=== PATIENT | male | born 1965 | race Caucasian/White ===

== ENCOUNTER → 2020-09-18 09:36 | Outpatient (BNVA) | payer OTHER, SELFPAY | PROVIDERS: Visit Provider Orthopaedic Surgery ==

== ENCOUNTER 2020-10-02 12:45 | Outpatient (REF) | payer OTHER, SELFPAY | END 2020-10-02 12:46 | disposition home or self-care (01) | LOC: HO.LAB 12:45 | PROVIDERS: Visit Provider Internal Medicine | DX: Z20.822 Contact with and (suspected) exposure to COVID-19 (principal) | CPT/HCPCS: 36415; C9803; U0003; U0005 ==

== ENCOUNTER 2020-10-10 13:34 | Day surgery (SDC) | payer OTHER, SELFPAY ==
[2020-10-10 14:02] VITALS: BMI 25.1
[2020-10-10 14:05] VITALS: BP 145/85; PULSE 77; RESP 18; TEMP 37.1; O2SAT 96
[2020-10-10 15:45] VITALS: BP 120/73; PULSE 70; RESP 18; TEMP 36.9; O2SAT 94
--- NOTE | 2020-10-10 15:46 | P.OP_ITS ---
Operative Note Operative Note Date of Service: 10/10/20 Narrative: Operative Note Preop diagnosis: 1. Left middle finger Trigger finger Postop diagnosis: 1. Left middle finger Trigger finger Procedure: 1. Left middle finger A1 gavino release Surgeon: Alondra Marie MD Anesthesia: local block using 1% lidocaine with epinephrine Findings: No locking or catching after A1 gavino release EBL: Less than 5 mL Tourniquet time: None Specimens: None Complications: None Disposition: Brought to recovery room in stable condition Plan: Follow-up for 7-10 days for wound check and suture removal Indications: The patient is 55 years old, with a left middle finger trigger finger that has been unresponsive to nonoperative management. The risks and benefits of operative treatment including but not limited to risk of damage to blood vessels, nerves, tendons, infection, persistent pain, persistent symptoms, recurrence or possible need for additional surgery were discussed with the patient and the patient wishes to proceed with surgery. Procedure: Once consent was obtained a local block was performed in the preop area using a combination of 1% lidocaine with epinephrine. The patient was then brought back to the operating suite and placed on the operative table in supine position. A tourniquet was applied to the proximal aspect of the left upper extremity and the limb was prepped and draped in a standard surgical fashion. Once assured that we had a good block, a 1.5 cm oblique incision was made centered over the A1 gavino of the left middle finger . The incision was made through the skin to the subcutaneous tissues using a #15 blade. Careful dissection was made down to the level of the A1 gavino using tenotomy scissors, with care being taken to protect the nearby neurovascular structures. A longitudinal incision was made in the A1 gavino 1st using a #15 blade, then using tenotomy scissors under direct visualization. The A1 gavino was noted to be thickened. Following our A1 gavino release, we no longer saw any locking or catching of the digit with flexion and extension. Once satisfied with our A1 gavino release the wound was copiously irrigated with normal saline and hemostasis was obtained with a brief period of local pressure. The skin edges were reapproximated with some 5.0 nylon suture material and a sterile dressing was applied. The patient appears to have tolerated the procedure well and with no complic ations. All digits were well vascularized at the conclusion of the case.
--- NOTE | 2020-10-10 15:46 | MHC.SHP ---
Pre-Procedural Eval Section B Chief Complaint: trigger finger Allergies: Allergies Allergy/AdvReac Type Severity Reaction Status Date / Time penicillamine Allergy Unknown unknown Verified 09/18/20 10:14 penicillin G Allergy Unknown Unknown Verified 09/18/20 10:14 Plan I have reviewed the history and physical and performed a pertinent physical examination on my patient. No changes have occurred unless specified.
== END 2020-10-10 16:38 | disposition home or self-care (01) ==
PROVIDERS: Visit Provider Orthopaedic Surgery
PROC: (CPT 26055; principal; 2020-10-10 14:30)
DX: M65.332 Trigger finger, left middle finger (principal); Z88.0 Allergy status to penicillin; F17.200 Nicotine dependence, unspecified, uncomplicated
CPT/HCPCS: 26055

== ENCOUNTER → 2020-10-21 09:17 | Outpatient (BNVA) | payer OTHER, SELFPAY | PROVIDERS: Visit Provider Orthopaedic Surgery ==

== ENCOUNTER → 2020-11-11 08:48 | Outpatient (BNVA) | payer OTHER, SELFPAY | PROVIDERS: Visit Provider Orthopaedic Surgery ==

== ENCOUNTER → 2020-11-15 13:56 | Outpatient (BNVA) | payer OTHER, SELFPAY | PROVIDERS: PCP Nurse Practitioner Family; Visit Provider Nurse Practitioner Family ==

== ENCOUNTER 2020-11-20 06:12 | Outpatient (REF) | payer OTHER, SELFPAY ==
[2020-11-20 17:46] LABS: Alanine Aminotransferase 82 U/L (0-40); Albumin Level 4.4 g/dL (3.5-5.0); Alkaline Phosphatase 79 U/L (39-117); Anion Gap 13 (12-20); Aspartate Amino Transferase 45 U/L (5-37); Bilirubin Total 0.3 mg/dL (0.0-1.0); Blood Urea Nitrogen 15 mg/dL (9-16); Calcium 9.2 mg/dL (8.4-10.2); Carbon Dioxide 28 mmol/L (22-29); Chloride 105 mmol/L (96-108); Cholesterol 343 mg/dL; Estimated Glomerular Filt Rate > 60; Glucose Fasting 97 mg/dL (60-99); HDL Cholesterol 31 mg/dL; LDL Cholesterol Calculated 262 mg/dl; Potassium 4.1 mmol/L (3.3-5.1); Sodium 142 mmol/L (135-145); Total Protein 7.3 g/dL (6.5-8.0); Triglycerides 252 mg/dL
[2020-11-20 17:56] LABS: Prostate Specific Antigen Scr 0.98 ng/mL (<0.05-4.0); TSH reflex Free T4 2.44 uIU/mL (0.32-4.0)
== END 2020-11-20 06:13 | disposition home or self-care (01) ==
LOC: HO.HMGCLDS 06:12
PROVIDERS: PCP Nurse Practitioner Family; Visit Provider Nurse Practitioner Family
DX: Z00.00 Encounter for general adult medical examination without abnormal findings (principal); Z12.5 Encounter for screening for malignant neoplasm of prostate
CPT/HCPCS: 36415; 80053; 80061; 84153; 84443

== ENCOUNTER 2020-12-06 08:07 | Outpatient (REF) | payer OTHER, SELFPAY ==
--- NOTE | ~2020-12-06 | US_ITS ---
EXAMINATION: US ABDOMEN COMPLETE CLINICAL INFORMATION: Abnormal liver function tests. COMPARISON: None TECHNIQUE: Real-time imaging of the abdominal viscera. FINDINGS: PANCREAS: Normal. ABDOMINAL AORTA: The proximal, mid, and distal segments are normal in caliber. INFERIOR VENA CAVA: Visualized portions are normal. LIVER: The liver is increased in echogenicity. No focal liver lesions are seen. The liver is normal in size. The liver contour is normal. There is no intrahepatic biliary duct dilatation seen. GALLBLADDER: Normal. The gallbladder is physiologically distended without evidence of stones, sludge, polyps, wall thickening or pericholecystic fluid. COMMON BILE DUCT: Normal in caliber measuring 0.48 cm in diameter. RIGHT KIDNEY: A tiny nonobstructive calculus is seen in the mid left kidney measuring 0.3 cm. No hydronephrosis or focal parenchymal lesions. The kidney measures 11.8 cm in maximum dimension. LEFT KIDNEY: Normal. No hydronephrosis. No renal calculi or focal parenchymal lesions. The kidney measures 11.0 cm in maximum dimension. SPLEEN: Normal. The spleen measures 9.3 cm in maximum dimension. FREE FLUID: None. US/US abdomen complete IMPRESSION: 1. Echogenic liver compatible with hepatic steatosis. Differential diagnosis includes hepatic parenchymal disease. No biliary dilatation. 2. No evidence of cholelithiasis.
== END 2020-12-06 08:08 | disposition home or self-care (01) ==
LOC: HO.HMGCX 08:07
PROVIDERS: PCP Internal Medicine; Visit Provider Nurse Practitioner Family
DX: R74.8 Abnormal levels of other serum enzymes (principal)
CPT/HCPCS: 76700

== ENCOUNTER 2020-12-20 07:40 | Day surgery (SDC) | payer OTHER, SELFPAY ==
--- NOTE | 2020-12-19 08:53 | P.CONAN_ITS ---
Documented by User: Shaina Mcclure 12/19/20 08:54 HPI - Anesthesia Eval Consult details Narrative: 55yo M for Colonoscopy [facility] Active Problems Active Problems: All Active Problems (Updated 11/21/20 @ 07:28 by Chad Hernández [facility]) Elevated liver enzymes (Acute) Dyslipidemia (Acute) Stiffness of finger joint (Acute) Trigger finger, left middle finger (Acute) Screening PSA (prostate specific antigen) (Acute) Physical exam (Acute) Screening for colon cancer (Acute) Trigger finger of left hand (Acute) Pain of left middle finger (Acute) Past Medical History Medical History (Updated 11/21/20 @ 07:28 [facility] Smoker Trigger finger Family History Family History (Updated 11/15/20 @ 13:59 by CHRISSIE Marinelli) Mother Colon cancer Social History Social History (Updated 11/15/20 @ 14:00 by CHRISSIE Marinelli) Household Members: Spouse Alcohol intake: current Alcohol intake frequency: former alcohol drinker Smoking Status: Current every day smoker Tobacco Type: Cigarette Cigarettes Per Day: 10 Years Smoked: 10 Smoked in Last 30 Days: Yes Use of substances other than those prescribed or required for medical reasons: Yes Are you DNR?: No Advance Directives: No Advance Directives Information Provided: Yes Current occupational status: employed 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, 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 Meds Allergies Allergy/AdvReac Type Severity Reaction Status Date / Time penicillamine Allergy Unknown unknown Verified 11/15/20 13:56 penicillin G Allergy Unknown Unknown Verified 11/15/20 13:56 Home Medications Medication Instructions Recorded Confirmed Last Taken Type prednisone 10 mg tablets in a dose See Rx Instructions PO PER PKG DIR 05/24/20 09/04/20 Unknown History pack Exam Exam Date and Time: December 19, 2020 0853 Assessment and Plan Assessment Anesthesia Assessment: Chart Reviewed Documented by User: Kellie Hoskins 12/20/20 08:30 [facility] Past Medical History Medical History (Updated 11/21/20 @ 07:28 by Chad Hernández [facility]) Smoker Trigger finger Family History Family History (Updated 11/15/20 @ 13:59 by CHRISSIE Marinelli) Mother Colon cancer Social History Social History (Updated 11/15/20 @ 14:00 by CHRISSIE Marinelli) Household Members: Spouse Alcohol intake: current Alcohol intake frequency: former alcohol drinker Smoking Status: Current every day smoker Tobacco Type: Cigarette Cigarettes Per Day: 10 Years Smoked: 10 Smoked in Last 30 Days: Yes Use of substances other than those prescribed or required for medical reasons: Yes Are you DNR?: No Advance Directives: No Advance Directives Information Provided: Yes Current occupational status: employed 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, 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 Meds Allergies Allergy/AdvReac Type Severity Reaction Status Date / Time penicillamine Allergy Unknown unknown Verified 11/15/20 13:56 penicillin G Allergy Unknown Unknown Verified 11/15/20 13:56 Home Medications Medication Instructions Recorded Confirmed Last Taken Type prednisone 10 mg tablets in a dose See Rx Instructions PO PER PKG DIR 05/24/20 09/04/20 Unknown History pack Exam Airway Mallampati Class: III TM Dist: >3cm Neck ROM: Full Loose/Missing/Broken Teeth: No Heart: RRR Lungs: CTA Assessment and Plan Assessment Anesthesia Assessment: Anesthesia Plan Discussed and Chart Reviewed Final Anesthetic Review NPO: Yes ASA Class: II Final Preanesthetic Review: Meds/Allgs Chart Reviewed, Consent Obtained/Reviewed and Anes Risks/Benef Reviewed Patient Risk: Low Procedure Risk: Low
[2020-12-20 07:54] VITALS: BMI 25.7
[2020-12-20 08:03] VITALS: BP 128/83; PULSE 86; RESP 16; TEMP 36.6; O2SAT 97
--- NOTE | 2020-12-20 08:17 | W.PM.OPN ---
Operative Note Operative Note Date of Service: 12/20/20 Narrative: Pre-op diagnosis: Colon cancer screen, patient's mom of colorectal cancer at age 56. Post-op diagnosis: other (Colon polyps, diverticulosis, hemorrhoids) Procedure: COLONOSCOPY TILL CECUM WITH BIOPSIES AND SNARE POLYPECTOMY Consent: Indications for the procedure and potential complications of bleeding, perforation, reaction to medications and missed diagnosis were discussed with the patient and informed consent was obtained. Instrument: Olympus PCF H 190 L variable stiffness pediatric colonoscope Monitoring: Vital signs and clinical assessment, intermittent blood pressure monitoring, continuous EKG monitoring, Pulse oximetry and Carbon Dioxide monitoring were done throughout the procedure. Colon withdrawl time was 25 minutes. Procedure: The patient was placed in the left lateral decubitis position and pre-procedure medications were administered. After a digital rectal examination of the ano-rectum, the video colonoscope was inserted into the rectum and advanced through the colon to the cecum. The colonoscope was slowly withdrawn in a retrograde panoramic fashion and the colon mucosa was carefully examined including a retroflexed view of the rectum. Findings and interventions are described below. Procedure Difficulty: Without difficulty Findings: Terminal Ileum: Not evaluated Cecum: Normal Ascending Colon: Normal Transverse Colon: A 4-5 mm sessile polyp removed with the cold biopsy Descending Colon: A 2 cm pedunculated polyp at 50 cms removed with a hot snare. And moderate diverticulosis. Sigmoid Colon: Moderate diverticulosis Rectum: 2 cm pedunculated polyp at 10 symptoms is removed with a hot snare. A 10 mm sessile polyp removed with a cold snare. Ano-rectum: Moderate internal hemorrhoids Colon preparation: Good after some irrigation and fair in the right colon. Impression and Post Procedure Diagnosis: Colonoscopy Findings: Four medium to large sized polyps removed Moderate diverticulosis seen in the left colon Moderate hemorrhoids on retroflexed exam. Plan: Await pathology results Patient will be sent a letter with polyp biopsy results. Repeat Colonoscopy interval based on path results - in 2 years if polyps are adenomatous and due to fair prep in the right colon. Above findings were reviewed with the patient and colon polyps and diverticulosis handouts were given in the discharge area Surgeon: Emeka Hargrove MD Anesthesia: MAC (Jennifer Parrihs CRNA) Was an Parts Sales Representative used for this Procedure?: No Parts Sales Representative: Scott Grimm Estimated blood loss (mL): 0 Pathology: other (A- TRANSVERSE COLON POLYP B- DESCENDING COLON POLYP C- RECTAL POLYPS AT 10CM) Condition: stable Disposition: PACU
--- NOTE | 2020-12-20 08:17 | MHC.SHP ---
Pre-Procedural Eval Section A The patient is an INPATIENT: No The History & Physical has been completed within 30 days and I have reviewed it.: No Section B Chief Complaint: Screening Details of Present Illness: Colon cancer screening Relevant Family History (Specify if Yes): Yes Relevant Social History: Tobacco Use Present Medications: see Short Stay Collaborative assessment Medical History: Significant History (Smoker Trigger finger) History of Previous Operations: No relevant previous surgery Allergies: Allergies Allergy/AdvReac Type Severity Reaction Status Date / Time penicillamine Allergy Unknown unknown Verified 11/15/20 13:56 penicillin G Allergy Unknown Unknown Verified 11/15/20 13:56 Review of Systems Sugical H&P ROS: Negative: Constitution, Cardiovascular, Respiratory and Gastrointestinal Exam Surgical H&P Exam: Normal: Heart, Normal: Lungs, Normal: Extremities and Normal: Abdomen Plan Diagnosis/Plan: Unchanged I have reviewed the history and physical and performed a pertinent physical examination on my patient. No changes have occurred unless specified.
[2020-12-20] MEDS: Lactated Ringers 1,000 ML 100 ML IVCONT (08:38)
[2020-12-20 09:51] VITALS: BP 92/74; PULSE 77; RESP 14; TEMP 36.2; O2SAT 93
[2020-12-20 10:06] VITALS: BP 102/67; PULSE 64; RESP 16; O2SAT 97
== END 2020-12-20 10:51 | disposition home or self-care (01) ==
PROVIDERS: PCP Nurse Practitioner Family; Visit Provider Internal Medicine Gastroenterology
PROC: 0DJD8ZZ Inspection of Lower Intestinal Tract, Via Natural or Artificial Opening Endoscopic (ICD-10-PCS; CPT 45378; principal; 2020-12-20 09:10)
DX: Z12.11 Encounter for screening for malignant neoplasm of colon (principal); Z80.0 Family history of malignant neoplasm of digestive organs; D12.4 Benign neoplasm of descending colon; D12.8 Benign neoplasm of rectum; K63.5 Polyp of colon; K57.30 Diverticulosis of large intestine without perforation or abscess without bleeding; K64.8 Other hemorrhoids; F17.210 Nicotine dependence, cigarettes, uncomplicated
CPT/HCPCS: 45385; 45380; 88305

== ENCOUNTER 2021-01-08 08:58 | Outpatient (REF) | payer OTHER, SELFPAY | END 2021-01-08 08:59 | disposition home or self-care (01) | LOC: HO.LAB 08:58 | PROVIDERS: Visit Provider Internal Medicine | DX: Z20.822 Contact with and (suspected) exposure to COVID-19 (principal) | CPT/HCPCS: C9803; U0003; U0005 ==